=== PATIENT | male | born 1990 ===

== ENCOUNTER 2018-10-15 09:03 | Outpatient (RCR) | payer OTHER | END 2018-12-11 15:35 | disposition home or self-care (01) | LOC: WSOH 09:03 | DX: S29.012A Strain of muscle and tendon of back wall of thorax, initial encounter (principal); S43.439A Superior glenoid labrum lesion of unspecified shoulder, initial encounter; R53.1 Weakness; Y92.89 Other specified places as the place of occurrence of the external cause; X50.0XXA Overexertion from strenuous movement or load, initial encounter; Y99.0 Civilian activity done for income or pay ==